=== PATIENT | female | born 1940 | race African-American/Black ===

== ENCOUNTER 2018-06-06 13:47 | Inpatient (IN) | payer MEDICARE, MEDICAID ==
[~2018-06-06] VITALS: Ht 157.5 cm; Wt 54.4 kg
[~2018-06-06 13:47] MED LIST: BENA40TA9 PO; HYDR12.529 PO; LOVA10TA PO; OMEP20TA2 PO
[2018-06-06] MEDS ORDERED: SODIUM CHLORIDE 0.9% 500 ML IV ONE (15:18)
[2018-06-06 16:12] LABS: BASOPHILS % 0.5 % (0.0-2.0); EOSINOPHILS % 0.1 % (0.0-5.0); HEMATOCRIT. 42.9 % (36.0-48.0); HEMOGLOBIN. 14.4 g/dL (12.0-16.0); LYMPHOCYTES % 11.8 % (20.0-50.0); MEAN CORPUSCULAR VOLUME 89.3 fL (81.0-99.0); MEAN PLATELET VOLUME 8.2 fl (7.4-10.4); NEUTROPHILS % 83.6 % (40.0-76.0); PLATELET 350 x1000/uL (130-400); RED BLOOD CELL COUNT 4.81 mill/uL (4.2-5.4)
[2018-06-06 16:15] LABS: CHLORIDE 105 mEq/L (98-107)
[2018-06-06 16:17] LABS: PARTIAL THROMBOPLASTIN TIME 24.8 sec (23.4-31.0); PROTHROMBIN TIME 10.1 sec (9.6-11.0)
[2018-06-06] MEDS ORDERED: MAGNESIUM 1 G PREMIX 100 ML IV ONE (18:00)
[2018-06-06 19:44] LABS: CLARITY URINE CLEAR (CLEAR); COLOR URINE YELLOW (YELLOW); KETONES URINE 1+ (NEGATIVE); LEUKOCYTE ESTERASE URINE 2+ (NEGATIVE); NITRITE URINE NEGATIVE (NEGATIVE); OCCULT BLOOD URINE NEGATIVE (NEGATIVE); PROTEIN URINE NEGATIVE (NEGATIVE); SPECIFIC GRAVITY URINE 1.013 (1.005-1.030)
[2018-06-06] MEDS ORDERED: ONDANSETRON HCL 4MG/2ML INJ IV PRN (20:00)
[2018-06-06] MEDS ORDERED: ACETAMINOPHEN 325MG TABLET PO PRN (20:00)
[2018-06-06] MEDS ORDERED: CEFTRIAXONE 1 G PREMIX 50 ML IV NR (20:30)
[2018-06-06] MEDS ORDERED: LOSARTAN POTASSIUM 50 MG TABLET PO NR (20:30)
[2018-06-06] MEDS: AMLODIPINE 5MG TABLET PO SCH (22:01)
[2018-06-06 23:10] VITALS: BP 172/69
[2018-06-07] VITALS (9 sets, daily range): BP systolic 115–174; BP diastolic 47–86
[2018-06-07] MEDS ORDERED: BENA20TA10 MT (00:47)
[2018-06-07 03:47] LABS: *AMPHETAMINES SCREEN URINE NEGATIVE (NEGATIVE); *BARBITURATES SCREEN URINE NEGATIVE (NEGATIVE); *BENZODIAZEPINES SCREEN URINE NEGATIVE (NEGATIVE); *COCAINE SCREEN URINE NEGATIVE (NEGATIVE); METHADONE URINE SCREEN NEGATIVE (NEGATIVE)
[2018-06-07 03:49] LABS: CANNABINOID URINE SCREEN NEGATIVE (NEGATIVE); OPIATES URINE SCREEN NEGATIVE (NEGATIVE); PHENCYCLIDINE URINE SCREEN NEGATIVE (NEGATIVE)
[2018-06-07 05:56] LABS: EOSINOPHILS % 0.8 % (0.0-5.0); HEMATOCRIT. 34.3 % (36.0-48.0); HEMOGLOBIN. 11.5 g/dL (12.0-16.0); LYMPHOCYTES % 26.8 % (20.0-50.0); MEAN CORPUSCULAR VOLUME 89.4 fL (81.0-99.0); MEAN PLATELET VOLUME 8.4 fl (7.4-10.4); MONOCYTES % 11.9 % (2.0-8.0); NEUTROPHILS % 59.5 % (40.0-76.0); PLATELET 306 x1000/uL (130-400); RED BLOOD CELL COUNT 3.83 mill/uL (4.2-5.4); RED CELL DISTRIBUTION WIDTH 15.7 % (11.6-14.6)
[2018-06-07] MEDS ORDERED: LOSARTAN POTASSIUM 50 MG TABLET PO SCH ×2 (09:00)
[2018-06-07] MEDS: AMLODIPINE 5MG TABLET PO SCH ×2 (09:58→20:44)
[2018-06-07] MEDS: LOSARTAN POTASSIUM 50 MG TABLET PO SCH (20:44)
[2018-06-07] MEDS ORDERED: CEFTRIAXONE 1 G PREMIX 50 ML IV SCH ×2 (21:00)
[2018-06-07] MEDS ORDERED: ATORVASTATIN CALCIUM 20MG TABLET PO SCH (21:00)
[2018-06-08] VITALS: BP 148/64
[2018-06-08 04:00] VITALS: BP 149/77
[2018-06-08 06:31] LABS: BASOPHILS % 0.6 % (0.0-2.0); EOSINOPHILS % 0.9 % (0.0-5.0); HEMATOCRIT. 39.4 % (36.0-48.0); HEMOGLOBIN. 13.2 g/dL (12.0-16.0); LYMPHOCYTES % 40.8 % (20.0-50.0); MEAN CORPUSCULAR HEMOGLOBIN 29.8 pg (28.0-32.0); MEAN CORPUSCULAR VOLUME 89.3 fL (81.0-99.0); MEAN PLATELET VOLUME 8.5 fl (7.4-10.4); NEUTROPHILS % 46.7 % (40.0-76.0); PLATELET 355 x1000/uL (130-400); RED BLOOD CELL COUNT 4.42 mill/uL (4.2-5.4); RED CELL DISTRIBUTION WIDTH 15.8 % (11.6-14.6)
[2018-06-08 08:00] VITALS: BP 112/53
[2018-06-08] MEDS: LOSARTAN POTASSIUM 50 MG TABLET PO SCH (08:49)
[2018-06-08] MEDS: AMLODIPINE 5MG TABLET PO SCH (08:49)
[2018-06-08 12:00] VITALS: BP_SYST 143; BP_SYST 147; BP_SYST 161; BP_DIAS 64; BP_DIAS 80; BP_DIAS 94
[2018-06-08 15:42] VITALS: BP 137/79
[2018-06-08] MEDS ORDERED: CLONIDINE 0.1MG TABLET PO NR (16:45)
== END 2018-06-08 17:35 | disposition home or self-care (01) | DRG 48 ==
LOC: ER 14:01 → 5WST 17:19 → EDBEDREQ 17:25 → ENRESERV 22:23
PROVIDERS: ADMIT Internal Medicine; ATTEND Internal Medicine
DX: G90.8 Other disorders of autonomic nervous system (principal); E83.42 Hypomagnesemia; N39.0 Urinary tract infection, site not specified; I12.9 Hypertensive chronic kidney disease with stage 1 through stage 4 chronic kidney disease, or unspecified chronic kidney disease; N18.2 Chronic kidney disease, stage 2 (mild); E78.5 Hyperlipidemia, unspecified; Z79.899 Other long term (current) drug therapy
CPT/HCPCS: 36415; 71045; 80048; 80061; 80305; 83735; 83880; 84443; 84484; 93005; 93306; 93880; 93970; 96365; 96367; 99285; J0696; J3475; J7040; J7050

== ENCOUNTER 2019-12-28 14:11 | Inpatient (IN) | payer MEDICARE, MEDICAID ==
[~2019-12-28] VITALS: Ht 152.4 cm; Wt 42.6 kg
[~2019-12-28 14:11] MED LIST changes: +AMLO5TAB88 PO; +ATOR20TA65 PO; -BENA40TA9 PO; -HYDR12.529 PO; +LOSA50TA41 PO; -LOVA10TA PO; -OMEP20TA2 PO; +ONDA4TAB5 MT
[2019-12-28] MEDS ORDERED: SODIUM CHLORIDE 0.9% 1,000 ML IV ONE ×2 (15:15→17:30)
[2019-12-28 16:06] LABS: BASOPHILS % 0.2 % (0.0-2.0); HEMATOCRIT. 47.2 % (36.0-48.0); HEMOGLOBIN. 15.9 g/dL (12.0-16.0); LYMPHOCYTES % 9.3 % (20.0-50.0); MEAN CORPUSCULAR HEMOGLOBIN 31.6 pg (28.0-32.0); MEAN CORPUSCULAR VOLUME 93.9 fL (81.0-99.0); MEAN PLATELET VOLUME 9.5 fl (7.4-10.4); MONOCYTES % 5.4 % (2.0-8.0); NEUTROPHILS % 85.1 % (40.0-76.0); PLATELET 401 x1000/uL (130-400); RED BLOOD CELL COUNT 5.03 mill/uL (4.2-5.4); RED CELL DISTRIBUTION WIDTH 13.9 % (11.6-14.6)
[2019-12-28 16:16] LABS: PROTHROMBIN TIME 10.1 sec (9.6-11.0)
[2019-12-28 16:24] LABS: CHLORIDE 105 mEq/L (98-107)
[2019-12-28 22:06] LABS: CLARITY URINE CLEAR (CLEAR); COLOR URINE YELLOW (YELLOW); KETONES URINE 1+ (NEGATIVE); LEUKOCYTE ESTERASE URINE NEGATIVE (NEGATIVE); NITRITE URINE NEGATIVE (NEGATIVE); OCCULT BLOOD URINE NEGATIVE (NEGATIVE); PROTEIN URINE NEGATIVE (NEGATIVE); SPECIFIC GRAVITY URINE 1.017 (1.005-1.030); UROBILINOGEN URINE 0.2 E.U./dL (0.2-1.0)
[2019-12-28 22:35] VITALS: BP 106/80
[2019-12-28 23:13] VITALS: BP 106/60
[2019-12-29] VITALS: BP 122/78
[2019-12-29 04:00] VITALS: BP 136/77
[2019-12-29 06:59] LABS: BASOPHILS % 0.5 % (0.0-2.0); HEMATOCRIT. 40.9 % (36.0-48.0); HEMOGLOBIN. 14.1 g/dL (12.0-16.0); LYMPHOCYTES % 11.7 % (20.0-50.0); MEAN CORPUSCULAR HEMOGLOBIN 31.6 pg (28.0-32.0); MEAN CORPUSCULAR VOLUME 91.7 fL (81.0-99.0); MEAN PLATELET VOLUME 8.5 fl (7.4-10.4); MONOCYTES % 5.7 % (2.0-8.0); NEUTROPHILS % 82.1 % (40.0-76.0); PLATELET 296 x1000/uL (130-400); RED BLOOD CELL COUNT 4.46 mill/uL (4.2-5.4); RED CELL DISTRIBUTION WIDTH 13.2 % (11.6-14.6)
[2019-12-29 07:23] LABS: CHLORIDE 115 mEq/L (98-107)
[2019-12-29 07:37] LABS: LDL CHOLESTEROL 58 mg/dL (5-100)
[2019-12-29 07:39] LABS: CREATINE KINASE 736 IU/L (26-192); HDL CHOLESTEROL 59 mg/dL (40-59)
[2019-12-29 07:42] LABS: CREATINE KINASE MB FRACTION 27.3 ng/mL (0.5-3.6)
[2019-12-29 08:00] VITALS: BP 108/46
[2019-12-29] MEDS: AMLODIPINE 5MG TABLET PO SCH ×2 (08:54→20:44)
[2019-12-29] MEDS: SODIUM CHLORIDE 0.9% 1,000 ML IV SCH ×2 (08:59→17:33)
[2019-12-29 12:00] VITALS: BP 128/65
[2019-12-29 16:00] VITALS: BP 125/88
[2019-12-29 16:18] LABS: CREATINE KINASE MB FRACTION 19.7 ng/mL (0.5-3.6)
[2019-12-29 16:20] LABS: CREATINE KINASE 591 IU/L (26-192)
[2019-12-29 20:00] VITALS: BP 121/76
[2019-12-29] MEDS: ATORVASTATIN CALCIUM 20MG TABLET PO SCH (20:44)
[2019-12-30] VITALS: BP 113/65
[2019-12-30 04:00] VITALS: BP 126/44
[2019-12-30] MEDS: AMLODIPINE 5MG TABLET PO SCH ×2 (09:00→21:13)
[2019-12-30] MEDS: SODIUM CHLORIDE 0.9% 1,000 ML IV SCH ×2 (09:31→21:13)
[2019-12-30 10:48] LABS: BASOPHILS % 0.2 % (0.0-2.0); EOSINOPHILS % 0.1 % (0.0-5.0); HEMATOCRIT. 39.3 % (36.0-48.0); HEMOGLOBIN. 13.3 g/dL (12.0-16.0); LYMPHOCYTES % 13.6 % (20.0-50.0); MEAN CORPUSCULAR HEMOGLOBIN 31.8 pg (28.0-32.0); MEAN CORPUSCULAR VOLUME 94.3 fL (81.0-99.0); MEAN PLATELET VOLUME 8.4 fl (7.4-10.4); MONOCYTES % 6.9 % (2.0-8.0); NEUTROPHILS % 79.2 % (40.0-76.0); PLATELET 250 x1000/uL (130-400); RED BLOOD CELL COUNT 4.17 mill/uL (4.2-5.4); RED CELL DISTRIBUTION WIDTH 13.8 % (11.6-14.6)
[2019-12-30 10:59] LABS: CHLORIDE 116 mEq/L (98-107)
[2019-12-30 12:00] VITALS: BP 133/78
[2019-12-30 14:34] LABS: CREATINE KINASE 494 IU/L (26-192)
[2019-12-30 16:01] VITALS: BP 143/85
[2019-12-30 20:00] VITALS: BP 138/82
[2019-12-30] MEDS: ATORVASTATIN CALCIUM 20MG TABLET PO SCH (21:13)
[2019-12-31] VITALS: BP 125/71
[2019-12-31 04:00] VITALS: BP 136/74
[2019-12-31 08:00] VITALS: BP 137/78
[2019-12-31] MEDS: SODIUM CHLORIDE 0.9% 1,000 ML IV SCH ×2 (08:05→22:25)
[2019-12-31] MEDS: AMLODIPINE 5MG TABLET PO SCH ×2 (09:38→22:23)
[2019-12-31 09:43] LABS: BASOPHILS % 0.1 % (0.0-2.0); EOSINOPHILS % 0.3 % (0.0-5.0); HEMATOCRIT. 38.4 % (36.0-48.0); HEMOGLOBIN. 13.4 g/dL (12.0-16.0); LYMPHOCYTES % 23.7 % (20.0-50.0); MEAN CORPUSCULAR HEMOGLOBIN 31.8 pg (28.0-32.0); MEAN PLATELET VOLUME 8.5 fl (7.4-10.4); MONOCYTES % 7.6 % (2.0-8.0); NEUTROPHILS % 68.3 % (40.0-76.0); PLATELET 257 x1000/uL (130-400); RED BLOOD CELL COUNT 4.22 mill/uL (4.2-5.4); RED CELL DISTRIBUTION WIDTH 13.5 % (11.6-14.6)
[2019-12-31 10:05] LABS: CHLORIDE 109 mEq/L (98-107)
[2019-12-31 12:00] VITALS: BP 132/74
[2019-12-31] MEDS ORDERED: POTASSIUM CHLORIDE 20MEQ TABLET SR PO NR ×2 (12:45→16:01)
[2019-12-31 14:54] LABS: PHOSPHORUS 1.3 mg/dL (2.5-4.9)
[2019-12-31 16:01] VITALS: BP 113/67
[2019-12-31 20:00] VITALS: BP 116/62
[2019-12-31] MEDS: ATORVASTATIN CALCIUM 20MG TABLET PO SCH (22:23)
[2020-01-01] VITALS: BP 121/63
[2020-01-01 04:00] VITALS: BP 114/74
[2020-01-01 06:36] LABS: CHLORIDE 110 mEq/L (98-107)
[2020-01-01 08:00] VITALS: BP 109/67
[2020-01-01] MEDS: AMLODIPINE 5MG TABLET PO SCH ×2 (08:51→21:45)
[2020-01-01] MEDS: SODIUM CHLORIDE 0.9% 1,000 ML IV SCH ×2 (09:04→21:47)
[2020-01-01 12:00] VITALS: BP 130/67
[2020-01-01] MEDS ORDERED: MAGNESIUM 4 G PREMIX 100 ML IV ONE (12:00)
[2020-01-01] MEDS ORDERED: POTASSIUM CHLORIDE 20MEQ TABLET SR PO NR (13:45)
[2020-01-01 16:00] VITALS: BP 131/83
[2020-01-01] MEDS: PANTOPRAZOLE SODIUM 40 MG/VIAL IV SCH (17:13)
[2020-01-01 20:00] VITALS: BP_SYST 128; BP_SYST 144; BP_DIAS 47; BP_DIAS 78
[2020-01-01] MEDS: ATORVASTATIN CALCIUM 20MG TABLET PO SCH (21:45)
[2020-01-02] VITALS: BP 128/80
[2020-01-02 04:00] VITALS: BP 135/79
[2020-01-02 08:00] VITALS: BP 118/68
[2020-01-02] MEDS: AMLODIPINE 5MG TABLET PO SCH ×2 (09:00→21:54)
[2020-01-02] MEDS: PANTOPRAZOLE SODIUM 40 MG/VIAL IV SCH (09:07)
[2020-01-02] MEDS: SODIUM CHLORIDE 0.9% 1,000 ML IV SCH (10:19)
[2020-01-02 10:43] LABS: BASOPHILS % 0.5 % (0.0-2.0); EOSINOPHILS % 0.8 % (0.0-5.0); HEMATOCRIT. 40.9 % (36.0-48.0); HEMOGLOBIN. 14.2 g/dL (12.0-16.0); LYMPHOCYTES % 36.6 % (20.0-50.0); MEAN CORPUSCULAR HEMOGLOBIN 31.9 pg (28.0-32.0); MEAN CORPUSCULAR VOLUME 91.7 fL (81.0-99.0); MEAN PLATELET VOLUME 9.9 fl (7.4-10.4); MONOCYTES % 6.4 % (2.0-8.0); NEUTROPHILS % 55.7 % (40.0-76.0); PLATELET 180 x1000/uL (130-400); RED BLOOD CELL COUNT 4.46 mill/uL (4.2-5.4); RED CELL DISTRIBUTION WIDTH 13.4 % (11.6-14.6)
[2020-01-02 10:59] LABS: PROTHROMBIN TIME 10.2 sec (9.6-11.0)
[2020-01-02] MEDS ORDERED: CEFAZOLIN 1000MG PREMIX 50 ML IV SCH (11:00)
[2020-01-02 11:08] LABS: CHLORIDE 109 mEq/L (98-107)
[2020-01-02 12:00] VITALS: BP 129/74
[2020-01-02] MEDS ORDERED: FENTANYL CITRATE/PF 50MCG/ML 2ML VIAL ONE (13:50)
[2020-01-02] MEDS ORDERED: MIDAZOLAM HCL 5 MG/5 ML VIAL ONE (13:50)
[2020-01-02] MEDS ORDERED: MIDAZOLAM HCL 5 MG/5 ML VIAL IV PRN (13:50)
[2020-01-02 16:00] VITALS: BP_SYST 109; BP_SYST 127; BP_DIAS 60; BP_DIAS 70
[2020-01-02] MEDS: SUCRALFATE 1 G/10 ML UDC GT SCH (17:36)
[2020-01-02] MEDS: METOCLOPRAMIDE HCL 10MG/2ML VIAL IV SCH (17:37)
[2020-01-02 20:00] VITALS: BP 115/62
[2020-01-02] MEDS: ATORVASTATIN CALCIUM 20MG TABLET PO SCH (21:54)
[2020-01-03] VITALS: BP 144/74
[2020-01-03] MEDS: METOCLOPRAMIDE HCL 10MG/2ML VIAL IV SCH ×4 (00:42→18:15)
[2020-01-03] MEDS: SUCRALFATE 1 G/10 ML UDC GT SCH ×4 (00:42→18:15)
[2020-01-03] MEDS: SODIUM CHLORIDE 0.9% 1,000 ML IV SCH ×2 (00:45→11:44)
[2020-01-03 04:00] VITALS: BP 152/67
[2020-01-03 07:42] LABS: BASOPHILS % 0.2 % (0.0-2.0); EOSINOPHILS % 0.3 % (0.0-5.0); HEMATOCRIT. 39.4 % (36.0-48.0); HEMOGLOBIN. 13.5 g/dL (12.0-16.0); LYMPHOCYTES % 13.9 % (20.0-50.0); MEAN CORPUSCULAR HEMOGLOBIN 31.4 pg (28.0-32.0); MEAN CORPUSCULAR VOLUME 91.6 fL (81.0-99.0); NEUTROPHILS % 79.6 % (40.0-76.0); PLATELET 172 x1000/uL (130-400); RED BLOOD CELL COUNT 4.31 mill/uL (4.2-5.4); RED CELL DISTRIBUTION WIDTH 13.4 % (11.6-14.6)
[2020-01-03 08:00] VITALS: BP 130/95
[2020-01-03 08:02] LABS: CHLORIDE 111 mEq/L (98-107)
[2020-01-03 08:07] LABS: PHOSPHORUS 1.8 mg/dL (2.5-4.9)
[2020-01-03] MEDS: PANTOPRAZOLE SODIUM 40 MG/VIAL IV SCH (08:38)
[2020-01-03] MEDS: AMLODIPINE 5MG TABLET PO SCH ×2 (08:39→21:43)
[2020-01-03] MEDS ORDERED: POLYETHYLENE GLYCOL 3350 (17GM) 1 DOSE PACK PEG PRN (09:45)
[2020-01-03] MEDS ORDERED: POLYETHYLENE GLYCOL 3350 (17GM) 1 DOSE PACK PEG NR (10:00)
[2020-01-03] MEDS ORDERED: SUCR1TAB30 MT (11:17)
[2020-01-03] MEDS ORDERED: PANT40TA4 MT (11:17)
[2020-01-03 12:00] VITALS: BP 143/74
[2020-01-03 16:00] VITALS: BP 123/72
[2020-01-03 20:20] VITALS: BP 126/76
[2020-01-03] MEDS: SENNOSIDES/DOCUSATE SOD 8.6/50MG TABLET PEG SCH (21:42)
[2020-01-03] MEDS: ATORVASTATIN CALCIUM 20MG TABLET PO SCH (21:42)
[2020-01-03] MEDS ORDERED: MAGNESIUM 2 G PREMIX 50 ML IV SCH (23:00)
[2020-01-04 00:25] VITALS: BP 128/82
[2020-01-04] MEDS: SUCRALFATE 1 G/10 ML UDC GT SCH ×5 (00:53→23:54)
[2020-01-04] MEDS: METOCLOPRAMIDE HCL 10MG/2ML VIAL IV SCH ×3 (00:53→12:27)
[2020-01-04] MEDS: SODIUM CHLORIDE 0.9% 1,000 ML IV SCH ×2 (00:57→12:30)
[2020-01-04 04:37] VITALS: BP 126/80
[2020-01-04 08:10] VITALS: BP 131/75
[2020-01-04] MEDS: AMLODIPINE 5MG TABLET PO SCH ×2 (09:26→20:25)
[2020-01-04] MEDS: FAMOTIDINE 20MG/2ML VIAL IV SCH (09:26)
[2020-01-04 12:00] VITALS: BP 122/70
[2020-01-04] MEDS ORDERED: SODIUM PHOS,M-BASIC-D-BASIC 10 MM in DEXT 5% WATER 246.6667 ML IV NR (12:30)
[2020-01-04 16:00] VITALS: BP 147/84
[2020-01-04 20:00] VITALS: BP 157/88
[2020-01-04] MEDS: SENNOSIDES/DOCUSATE SOD 8.6/50MG TABLET PEG SCH (20:25)
[2020-01-04] MEDS: ATORVASTATIN CALCIUM 20MG TABLET PO SCH (20:25)
[2020-01-05] VITALS (7 sets, daily range): BP systolic 118–150; BP diastolic 68–82
[2020-01-05] MEDS: SUCRALFATE 1 G/10 ML UDC GT SCH ×3 (06:14→17:13)
[2020-01-05 06:50] LABS: CHLORIDE 109 mEq/L (98-107)
[2020-01-05 07:06] LABS: PHOSPHORUS 1.6 mg/dL (2.5-4.9)
[2020-01-05] MEDS: AMLODIPINE 5MG TABLET PO SCH ×2 (08:49→20:06)
[2020-01-05] MEDS: FAMOTIDINE 20MG/2ML VIAL IV SCH (08:49)
[2020-01-05] MEDS: SODIUM CHLORIDE 0.9% 1,000 ML IV SCH ×2 (12:13)
[2020-01-05] MEDS: ATORVASTATIN CALCIUM 20MG TABLET PO SCH (20:06)
[2020-01-05] MEDS: SENNOSIDES/DOCUSATE SOD 8.6/50MG TABLET PEG SCH (20:06)
[2020-01-06] VITALS: BP 134/68
[2020-01-06] MEDS: SUCRALFATE 1 G/10 ML UDC GT SCH ×5 (00:36→23:37)
[2020-01-06] MEDS: SODIUM CHLORIDE 0.9% 1,000 ML IV SCH ×2 (00:41→15:24)
[2020-01-06 04:00] VITALS: BP 130/76
[2020-01-06 07:25] LABS: CHLORIDE 108 mEq/L (98-107)
[2020-01-06 07:26] LABS: BASOPHILS % 0.3 % (0.0-2.0); EOSINOPHILS % 0.8 % (0.0-5.0); HEMATOCRIT. 34.8 % (36.0-48.0); HEMOGLOBIN. 11.9 g/dL (12.0-16.0); LYMPHOCYTES % 11.5 % (20.0-50.0); MEAN CORPUSCULAR HEMOGLOBIN 31.3 pg (28.0-32.0); MEAN CORPUSCULAR VOLUME 91.2 fL (81.0-99.0); MEAN PLATELET VOLUME 9.8 fl (7.4-10.4); MONOCYTES % 8.9 % (2.0-8.0); NEUTROPHILS % 78.5 % (40.0-76.0); PLATELET 190 x1000/uL (130-400); RED BLOOD CELL COUNT 3.82 mill/uL (4.2-5.4); RED CELL DISTRIBUTION WIDTH 14.1 % (11.6-14.6)
[2020-01-06 08:00] VITALS: BP 156/75
[2020-01-06] MEDS: FAMOTIDINE 20MG/2ML VIAL IV SCH (09:02)
[2020-01-06] MEDS: AMLODIPINE 5MG TABLET PO SCH ×2 (09:02→21:16)
[2020-01-06 12:00] VITALS: BP 122/69
[2020-01-06 12:14] LABS: PHOSPHORUS 2.3 mg/dL (2.5-4.9)
[2020-01-06] MEDS: METOCLOPRAMIDE HCL 10MG/2ML VIAL IV SCH ×3 (12:51→23:37)
[2020-01-06 16:00] VITALS: BP 130/65
[2020-01-06 20:00] VITALS: BP 149/77
[2020-01-06] MEDS: ATORVASTATIN CALCIUM 20MG TABLET PO SCH (21:16)
[2020-01-06] MEDS: SENNOSIDES/DOCUSATE SOD 8.6/50MG TABLET PEG SCH (21:16)
[2020-01-07] VITALS: BP 156/79
[2020-01-07 04:00] VITALS: BP_SYST 149; BP_SYST 156; BP_DIAS 77; BP_DIAS 85
[2020-01-07] MEDS: METOCLOPRAMIDE HCL 10MG/2ML VIAL IV SCH ×3 (06:13→17:00)
[2020-01-07] MEDS: SUCRALFATE 1 G/10 ML UDC GT SCH ×3 (06:13→17:00)
[2020-01-07] MEDS: SODIUM CHLORIDE 0.9% 1,000 ML IV SCH ×2 (06:15→16:56)
[2020-01-07 08:00] VITALS: BP 158/80
[2020-01-07] MEDS: FAMOTIDINE 20MG/2ML VIAL IV SCH (09:03)
[2020-01-07] MEDS: AMLODIPINE 5MG TABLET PO SCH ×2 (09:03→21:09)
[2020-01-07 12:00] VITALS: BP 90/55
[2020-01-07 16:00] VITALS: BP 118/65
[2020-01-07 20:00] VITALS: BP 127/70
[2020-01-07] MEDS: METOPROLOL TARTRATE 25MG TABLET PO SCH (21:09)
[2020-01-07] MEDS: ATORVASTATIN CALCIUM 20MG TABLET PO SCH (21:09)
[2020-01-07] MEDS: SENNOSIDES/DOCUSATE SOD 8.6/50MG TABLET PEG SCH (21:09)
[2020-01-08] VITALS: BP 137/69
[2020-01-08] MEDS: SUCRALFATE 1 G/10 ML UDC GT SCH ×4 (00:46→17:04)
[2020-01-08] MEDS: METOCLOPRAMIDE HCL 10MG/2ML VIAL IV SCH ×4 (00:46→17:04)
[2020-01-08 04:00] VITALS: BP 129/71
[2020-01-08] MEDS: SODIUM CHLORIDE 0.9% 1,000 ML IV SCH (06:28)
[2020-01-08 08:18] VITALS: BP 165/66
[2020-01-08] MEDS: FAMOTIDINE 20MG/2ML VIAL IV SCH (08:27)
[2020-01-08] MEDS: AMLODIPINE 5MG TABLET PO SCH ×2 (08:27→22:35)
[2020-01-08] MEDS: METOPROLOL TARTRATE 25MG TABLET PO SCH ×2 (08:27→22:34)
[2020-01-08 12:00] VITALS: BP 109/51
[2020-01-08 16:00] VITALS: BP 116/59
[2020-01-08 20:00] VITALS: BP 134/66
[2020-01-08] MEDS: ATORVASTATIN CALCIUM 20MG TABLET PO SCH (22:35)
[2020-01-08] MEDS: SENNOSIDES/DOCUSATE SOD 8.6/50MG TABLET PEG SCH (22:35)
[2020-01-09] MEDS: METOCLOPRAMIDE HCL 10MG/2ML VIAL IV SCH ×5 (00:19→23:55)
[2020-01-09] MEDS: SUCRALFATE 1 G/10 ML UDC GT SCH ×5 (00:20→23:55)
[2020-01-09] MEDS: SODIUM CHLORIDE 0.9% 1,000 ML IV SCH ×2 (00:23→16:41)
[2020-01-09 01:06] VITALS: BP 136/69
[2020-01-09 04:00] VITALS: BP 142/66
[2020-01-09 08:31] VITALS: BP 135/70
[2020-01-09] MEDS: METOPROLOL TARTRATE 25MG TABLET PO SCH ×2 (08:36→22:05)
[2020-01-09] MEDS: FAMOTIDINE 20MG/2ML VIAL IV SCH (08:37)
[2020-01-09] MEDS: AMLODIPINE 5MG TABLET PO SCH ×2 (08:37→22:05)
[2020-01-09 09:00] LABS: BASOPHILS % 0.9 % (0.0-2.0); EOSINOPHILS % 0.6 % (0.0-5.0); HEMATOCRIT. 33.8 % (36.0-48.0); HEMOGLOBIN. 11.5 g/dL (12.0-16.0); LYMPHOCYTES % 16.3 % (20.0-50.0); MEAN CORPUSCULAR HEMOGLOBIN 31.3 pg (28.0-32.0); MEAN CORPUSCULAR VOLUME 92.2 fL (81.0-99.0); MEAN PLATELET VOLUME 8.6 fl (7.4-10.4); NEUTROPHILS % 73.2 % (40.0-76.0); PLATELET 376 x1000/uL (130-400); RED BLOOD CELL COUNT 3.66 mill/uL (4.2-5.4); RED CELL DISTRIBUTION WIDTH 14.5 % (11.6-14.6)
[2020-01-09 09:30] LABS: CHLORIDE 106 mEq/L (98-107)
[2020-01-09 12:26] VITALS: BP 128/71
[2020-01-09 15:55] VITALS: BP 114/60
[2020-01-09 20:00] VITALS: BP 134/71
[2020-01-09] MEDS: ATORVASTATIN CALCIUM 20MG TABLET PO SCH (22:05)
[2020-01-09] MEDS: SENNOSIDES/DOCUSATE SOD 8.6/50MG TABLET PEG SCH (22:05)
[2020-01-10] VITALS: BP 129/64
[2020-01-10 04:00] VITALS: BP 120/80
[2020-01-10] MEDS: SODIUM CHLORIDE 0.9% 1,000 ML IV SCH ×2 (04:57→18:28)
[2020-01-10] MEDS: METOCLOPRAMIDE HCL 10MG/2ML VIAL IV SCH ×3 (05:24→18:22)
[2020-01-10] MEDS: SUCRALFATE 1 G/10 ML UDC GT SCH ×3 (05:24→18:22)
[2020-01-10 06:40] LABS: BASOPHILS % 0.4 % (0.0-2.0); EOSINOPHILS % 0.5 % (0.0-5.0); HEMATOCRIT. 32.3 % (36.0-48.0); HEMOGLOBIN. 11.1 g/dL (12.0-16.0); LYMPHOCYTES % 13.7 % (20.0-50.0); MEAN CORPUSCULAR HEMOGLOBIN 31.7 pg (28.0-32.0); MEAN CORPUSCULAR VOLUME 92.2 fL (81.0-99.0); MEAN PLATELET VOLUME 8.6 fl (7.4-10.4); MONOCYTES % 9.9 % (2.0-8.0); NEUTROPHILS % 75.5 % (40.0-76.0); PLATELET 389 x1000/uL (130-400); RED CELL DISTRIBUTION WIDTH 14.7 % (11.6-14.6)
[2020-01-10 06:58] LABS: CHLORIDE 105 mEq/L (98-107)
[2020-01-10 08:00] VITALS: BP 152/83
[2020-01-10] MEDS: METOPROLOL TARTRATE 25MG TABLET PO SCH ×2 (09:17→21:25)
[2020-01-10] MEDS: AMLODIPINE 5MG TABLET PO SCH ×2 (09:17→21:25)
[2020-01-10] MEDS: FAMOTIDINE 20MG/2ML VIAL IV SCH (09:17)
[2020-01-10 12:00] VITALS: BP 138/74
[2020-01-10 16:00] VITALS: BP 123/75
[2020-01-10 20:00] VITALS: BP 134/68
[2020-01-10] MEDS: ATORVASTATIN CALCIUM 20MG TABLET PO SCH (21:25)
[2020-01-10] MEDS: SENNOSIDES/DOCUSATE SOD 8.6/50MG TABLET PEG SCH (21:25)
[2020-01-11] VITALS: BP 122/63
[2020-01-11] MEDS: SUCRALFATE 1 G/10 ML UDC GT SCH ×4 (00:20→18:43)
[2020-01-11] MEDS: METOCLOPRAMIDE HCL 10MG/2ML VIAL IV SCH ×4 (00:20→18:43)
[2020-01-11 04:00] VITALS: BP 142/77
[2020-01-11] MEDS: SODIUM CHLORIDE 0.9% 1,000 ML IV SCH ×2 (05:51→18:43)
[2020-01-11 06:24] LABS: BASOPHILS % 1.1 % (0.0-2.0); EOSINOPHILS % 0.9 % (0.0-5.0); HEMOGLOBIN. 10.3 g/dL (12.0-16.0); MEAN CORPUSCULAR HEMOGLOBIN 31.9 pg (28.0-32.0); MEAN CORPUSCULAR VOLUME 93.1 fL (81.0-99.0); MEAN PLATELET VOLUME 8.5 fl (7.4-10.4); MONOCYTES % 10.9 % (2.0-8.0); NEUTROPHILS % 66.1 % (40.0-76.0); PLATELET 392 x1000/uL (130-400); RED BLOOD CELL COUNT 3.23 mill/uL (4.2-5.4); RED CELL DISTRIBUTION WIDTH 14.9 % (11.6-14.6)
[2020-01-11 06:59] LABS: CHLORIDE 108 mEq/L (98-107)
[2020-01-11 08:00] VITALS: BP 138/61
[2020-01-11] MEDS: AMLODIPINE 5MG TABLET PO SCH ×2 (09:00→20:28)
[2020-01-11] MEDS: FAMOTIDINE 20MG/2ML VIAL IV SCH (09:00)
[2020-01-11] MEDS: METOPROLOL TARTRATE 25MG TABLET PO SCH ×2 (09:00→20:28)
[2020-01-11 13:00] VITALS: BP 117/56
[2020-01-11 16:00] VITALS: BP 116/57
[2020-01-11 20:00] VITALS: BP 112/53
[2020-01-11] MEDS: ATORVASTATIN CALCIUM 20MG TABLET PO SCH (20:28)
[2020-01-11] MEDS: SENNOSIDES/DOCUSATE SOD 8.6/50MG TABLET PEG SCH (20:28)
[2020-01-12] VITALS: BP 119/51
[2020-01-12] MEDS: METOCLOPRAMIDE HCL 10MG/2ML VIAL IV SCH ×4 (00:32→18:06)
[2020-01-12] MEDS: SUCRALFATE 1 G/10 ML UDC GT SCH ×4 (00:36→18:06)
[2020-01-12 04:00] VITALS: BP 147/65
[2020-01-12] MEDS: SODIUM CHLORIDE 0.9% 1,000 ML IV SCH ×2 (06:42→18:07)
[2020-01-12 06:51] LABS: BASOPHILS % 0.6 % (0.0-2.0); EOSINOPHILS % 0.8 % (0.0-5.0); HEMATOCRIT. 27.7 % (36.0-48.0); HEMOGLOBIN. 9.6 g/dL (12.0-16.0); LYMPHOCYTES % 21.7 % (20.0-50.0); MEAN CORPUSCULAR HEMOGLOBIN 32.4 pg (28.0-32.0); MEAN CORPUSCULAR VOLUME 93.9 fL (81.0-99.0); MONOCYTES % 11.5 % (2.0-8.0); NEUTROPHILS % 65.4 % (40.0-76.0); PLATELET 400 x1000/uL (130-400); RED BLOOD CELL COUNT 2.95 mill/uL (4.2-5.4); RED CELL DISTRIBUTION WIDTH 15.2 % (11.6-14.6)
[2020-01-12 07:10] LABS: CHLORIDE 111 mEq/L (98-107)
[2020-01-12 08:00] VITALS: BP 130/63
[2020-01-12] MEDS: FAMOTIDINE 20MG/2ML VIAL IV SCH (09:24)
[2020-01-12] MEDS: AMLODIPINE 5MG TABLET PO SCH ×2 (09:24→21:33)
[2020-01-12] MEDS: METOPROLOL TARTRATE 25MG TABLET PO SCH ×2 (09:24→21:33)
[2020-01-12 12:00] VITALS: BP 106/59
[2020-01-12 16:00] VITALS: BP 112/51
[2020-01-12 20:00] VITALS: BP 126/56
[2020-01-12] MEDS: ATORVASTATIN CALCIUM 20MG TABLET PO SCH (21:32)
[2020-01-12] MEDS: SENNOSIDES/DOCUSATE SOD 8.6/50MG TABLET PEG SCH (21:32)
[2020-01-13] VITALS: BP 146/77
[2020-01-13] MEDS: METOCLOPRAMIDE HCL 10MG/2ML VIAL IV SCH ×4 (00:28→17:05)
[2020-01-13] MEDS: SUCRALFATE 1 G/10 ML UDC GT SCH ×4 (00:28→17:05)
[2020-01-13 04:00] VITALS: BP 136/63
[2020-01-13 08:00] VITALS: BP 140/64
[2020-01-13] MEDS: METOPROLOL TARTRATE 25MG TABLET PO SCH ×2 (09:26→22:04)
[2020-01-13] MEDS: FAMOTIDINE 20MG/2ML VIAL IV SCH (09:26)
[2020-01-13] MEDS: AMLODIPINE 5MG TABLET PO SCH ×2 (09:26→22:04)
[2020-01-13] MEDS: SODIUM CHLORIDE 0.9% 1,000 ML IV SCH ×2 (09:26→23:52)
[2020-01-13 12:00] VITALS: BP 110/56
[2020-01-13 16:00] VITALS: BP 122/54
[2020-01-13 20:00] VITALS: BP 118/52
[2020-01-13] MEDS: SENNOSIDES/DOCUSATE SOD 8.6/50MG TABLET PEG SCH (22:03)
[2020-01-13] MEDS: ATORVASTATIN CALCIUM 20MG TABLET PO SCH (22:05)
[2020-01-14] VITALS: BP 127/53
[2020-01-14] MEDS: METOCLOPRAMIDE HCL 10MG/2ML VIAL IV SCH ×4 (00:51→18:08)
[2020-01-14] MEDS: SUCRALFATE 1 G/10 ML UDC GT SCH ×5 (00:51→23:56)
[2020-01-14 04:00] VITALS: BP 125/60
[2020-01-14 08:00] VITALS: BP 133/86
[2020-01-14] MEDS: AMLODIPINE 5MG TABLET PO SCH ×2 (09:00→21:22)
[2020-01-14] MEDS: METOPROLOL TARTRATE 25MG TABLET PO SCH ×2 (09:00→21:22)
[2020-01-14] MEDS: FAMOTIDINE 20MG/2ML VIAL IV SCH (09:01)
[2020-01-14] MEDS: SODIUM CHLORIDE 0.9% 1,000 ML IV SCH ×2 (09:08→21:19)
[2020-01-14 12:00] VITALS: BP 112/48
[2020-01-14 15:53] VITALS: BP 116/62
[2020-01-14 20:00] VITALS: BP 119/69
[2020-01-14] MEDS: ATORVASTATIN CALCIUM 20MG TABLET PO SCH (21:21)
[2020-01-14] MEDS: SENNOSIDES/DOCUSATE SOD 8.6/50MG TABLET PEG SCH (21:21)
[2020-01-15] VITALS: BP 138/63
[2020-01-15] MEDS: METOCLOPRAMIDE HCL 10MG/2ML VIAL IV SCH ×4 (00:01→23:34)
[2020-01-15 04:00] VITALS: BP 125/47
[2020-01-15] MEDS: SUCRALFATE 1 G/10 ML UDC GT SCH ×3 (06:24→23:34)
[2020-01-15 08:00] VITALS: BP 152/66
[2020-01-15] MEDS: AMLODIPINE 5MG TABLET PO SCH ×2 (08:55→21:01)
[2020-01-15] MEDS: FAMOTIDINE 20MG/2ML VIAL IV SCH (08:55)
[2020-01-15] MEDS: METOPROLOL TARTRATE 25MG TABLET PO SCH ×2 (08:56→21:01)
[2020-01-15] MEDS: SODIUM CHLORIDE 0.9% 1,000 ML IV SCH ×2 (10:30→23:33)
[2020-01-15 11:50] VITALS: BP 106/45
[2020-01-15 16:00] VITALS: BP 105/66
[2020-01-15 20:00] VITALS: BP 134/60
[2020-01-15] MEDS: SENNOSIDES/DOCUSATE SOD 8.6/50MG TABLET PEG SCH (21:00)
[2020-01-15] MEDS: ATORVASTATIN CALCIUM 20MG TABLET PO SCH (21:00)
[2020-01-16] VITALS: BP 143/65
[2020-01-16] MEDS: METOCLOPRAMIDE HCL 10MG/2ML VIAL IV SCH ×3 (05:24→17:47)
[2020-01-16] MEDS: SUCRALFATE 1 G/10 ML UDC GT SCH ×3 (05:24→17:47)
[2020-01-16 08:00] VITALS: BP 97/40
[2020-01-16 08:30] VITALS: BP 166/78
[2020-01-16] MEDS: FAMOTIDINE 20MG/2ML VIAL IV SCH (08:58)
[2020-01-16] MEDS: METOPROLOL TARTRATE 25MG TABLET PO SCH ×2 (08:59→21:13)
[2020-01-16] MEDS: AMLODIPINE 5MG TABLET PO SCH ×2 (08:59→21:13)
[2020-01-16] MEDS: SODIUM CHLORIDE 0.9% 1,000 ML IV SCH (09:11)
[2020-01-16 12:00] VITALS: BP 135/57
[2020-01-16 16:00] VITALS: BP 127/50
[2020-01-16 20:00] VITALS: BP 144/61
[2020-01-16] MEDS: ATORVASTATIN CALCIUM 20MG TABLET PO SCH (21:12)
[2020-01-16] MEDS: SENNOSIDES/DOCUSATE SOD 8.6/50MG TABLET PEG SCH (21:12)
[2020-01-17] VITALS: BP 120/58
[2020-01-17] MEDS: SODIUM CHLORIDE 0.9% 1,000 ML IV SCH ×2 (01:51→12:20)
[2020-01-17] MEDS: SUCRALFATE 1 G/10 ML UDC GT SCH ×5 (01:51→23:33)
[2020-01-17] MEDS: METOCLOPRAMIDE HCL 10MG/2ML VIAL IV SCH ×5 (01:51→23:36)
[2020-01-17 04:00] VITALS: BP 105/57
[2020-01-17 08:00] VITALS: BP 122/58
[2020-01-17] MEDS: AMLODIPINE 5MG TABLET PO SCH ×2 (09:58→22:59)
[2020-01-17] MEDS: FAMOTIDINE 20MG/2ML VIAL IV SCH (09:58)
[2020-01-17] MEDS: METOPROLOL TARTRATE 25MG TABLET PO SCH ×2 (10:01→22:58)
[2020-01-17 12:00] VITALS: BP 118/54
[2020-01-17 16:00] VITALS: BP 110/54
[2020-01-17 20:00] VITALS: BP 134/58
[2020-01-17] MEDS: ATORVASTATIN CALCIUM 20MG TABLET PO SCH (22:58)
[2020-01-17] MEDS: SENNOSIDES/DOCUSATE SOD 8.6/50MG TABLET PEG SCH (23:33)
[2020-01-18] VITALS: BP 162/59
[2020-01-18] MEDS: SUCRALFATE 1 G/10 ML UDC GT SCH ×4 (06:41→23:44)
[2020-01-18] MEDS: METOCLOPRAMIDE HCL 10MG/2ML VIAL IV SCH ×4 (06:42→23:45)
[2020-01-18 08:00] VITALS: BP 160/65
[2020-01-18] MEDS: AMLODIPINE 5MG TABLET PO SCH ×2 (08:21→22:12)
[2020-01-18] MEDS: METOPROLOL TARTRATE 25MG TABLET PO SCH ×2 (08:21→22:11)
[2020-01-18] MEDS: FAMOTIDINE 20MG/2ML VIAL IV SCH (08:51)
[2020-01-18 12:00] VITALS: BP 149/72
[2020-01-18] MEDS: SODIUM CHLORIDE 0.9% 1,000 ML IV SCH (14:37)
[2020-01-18 16:00] VITALS: BP 134/71
[2020-01-18 19:00] VITALS: BP 132/60
[2020-01-18] MEDS: SENNOSIDES/DOCUSATE SOD 8.6/50MG TABLET PEG SCH (22:10)
[2020-01-18] MEDS: ATORVASTATIN CALCIUM 20MG TABLET PO SCH (22:10)
[2020-01-19] MEDS: SODIUM CHLORIDE 0.9% 1,000 ML IV SCH ×2 (02:00→18:50)
[2020-01-19] MEDS: METOCLOPRAMIDE HCL 10MG/2ML VIAL IV SCH ×3 (05:42→18:50)
[2020-01-19] MEDS: SUCRALFATE 1 G/10 ML UDC GT SCH ×3 (05:42→18:50)
[2020-01-19 08:00] VITALS: BP 155/62
[2020-01-19] MEDS: METOPROLOL TARTRATE 25MG TABLET PO SCH ×2 (09:10→23:05)
[2020-01-19] MEDS: AMLODIPINE 5MG TABLET PO SCH ×2 (09:11→23:05)
[2020-01-19] MEDS: FAMOTIDINE 20MG/2ML VIAL IV SCH (09:11)
[2020-01-19 12:00] VITALS: BP 117/69
[2020-01-19 16:00] VITALS: BP 117/56
[2020-01-19 20:00] VITALS: BP 118/55
[2020-01-19] MEDS: SENNOSIDES/DOCUSATE SOD 8.6/50MG TABLET PEG SCH (23:04)
[2020-01-19] MEDS: ATORVASTATIN CALCIUM 20MG TABLET PO SCH (23:04)
[2020-01-20] VITALS: BP 128/54
[2020-01-20] MEDS: METOCLOPRAMIDE HCL 10MG/2ML VIAL IV SCH ×4 (03:49→18:02)
[2020-01-20] MEDS: SUCRALFATE 1 G/10 ML UDC GT SCH ×4 (03:49→18:02)
[2020-01-20 04:00] VITALS: BP 137/61
[2020-01-20 07:17] LABS: HEMATOCRIT. 29.9 % (36.0-48.0); HEMOGLOBIN. 9.9 g/dL (12.0-16.0); MEAN CORPUSCULAR HEMOGLOBIN 32.1 pg (28.0-32.0); MEAN CORPUSCULAR VOLUME 96.6 fL (81.0-99.0); RED BLOOD CELL COUNT 3.09 mill/uL (4.2-5.4); RED CELL DISTRIBUTION WIDTH 16.6 % (11.6-14.6)
[2020-01-20 08:00] VITALS: BP 151/66
[2020-01-20 08:29] LABS: CHLORIDE 113 mEq/L (98-107)
[2020-01-20] MEDS: AMLODIPINE 5MG TABLET PO SCH ×2 (08:46→21:45)
[2020-01-20] MEDS: METOPROLOL TARTRATE 25MG TABLET PO SCH ×2 (08:46→21:45)
[2020-01-20] MEDS: FAMOTIDINE 20MG/2ML VIAL IV SCH (11:04)
[2020-01-20 11:08] LABS: PLATELET ESTIMATE NORMAL
[2020-01-20 11:09] LABS: PLATELET 342 x1000/uL (130-400)
[2020-01-20 12:00] VITALS: BP 119/56
[2020-01-20 16:00] VITALS: BP 133/58
[2020-01-20 20:00] VITALS: BP 134/57
[2020-01-20] MEDS: ATORVASTATIN CALCIUM 20MG TABLET PO SCH (21:44)
[2020-01-20] MEDS: SENNOSIDES/DOCUSATE SOD 8.6/50MG TABLET PEG SCH (21:44)
[2020-01-21] VITALS: BP 136/61
[2020-01-21] MEDS: METOCLOPRAMIDE HCL 10MG/2ML VIAL IV SCH ×4 (00:56→17:38)
[2020-01-21] MEDS: SUCRALFATE 1 G/10 ML UDC GT SCH ×4 (00:58→17:38)
[2020-01-21] MEDS: SODIUM CHLORIDE 0.9% 1,000 ML IV SCH (03:09)
[2020-01-21 04:00] VITALS: BP 137/83
[2020-01-21 08:00] VITALS: BP 136/58
[2020-01-21] MEDS: FAMOTIDINE 20MG/2ML VIAL IV SCH (08:37)
[2020-01-21] MEDS: METOPROLOL TARTRATE 25MG TABLET PO SCH ×2 (08:39→21:24)
[2020-01-21] MEDS: AMLODIPINE 5MG TABLET PO SCH ×2 (08:39→21:23)
[2020-01-21 20:00] VITALS: BP 145/61
[2020-01-21] MEDS: SENNOSIDES/DOCUSATE SOD 8.6/50MG TABLET PEG SCH (21:24)
[2020-01-21] MEDS: ATORVASTATIN CALCIUM 20MG TABLET PO SCH (21:24)
[2020-01-22] VITALS: BP 152/70
[2020-01-22 04:00] VITALS: BP 122/61
[2020-01-22] MEDS: SODIUM CHLORIDE 0.9% 1,000 ML IV SCH ×2 (06:28→21:17)
[2020-01-22] MEDS: SUCRALFATE 1 G/10 ML UDC GT SCH ×5 (06:28→23:21)
[2020-01-22] MEDS: METOCLOPRAMIDE HCL 10MG/2ML VIAL IV SCH ×5 (06:29→23:21)
[2020-01-22 08:00] VITALS: BP 134/65
[2020-01-22] MEDS: AMLODIPINE 5MG TABLET PO SCH ×2 (08:41→21:18)
[2020-01-22] MEDS: FAMOTIDINE 20MG/2ML VIAL IV SCH (08:41)
[2020-01-22] MEDS: METOPROLOL TARTRATE 25MG TABLET PO SCH ×2 (08:42→21:19)
[2020-01-22 12:00] VITALS: BP 117/56
[2020-01-22 20:00] VITALS: BP 140/70
[2020-01-22] MEDS: ATORVASTATIN CALCIUM 20MG TABLET PO SCH (21:17)
[2020-01-22] MEDS: SENNOSIDES/DOCUSATE SOD 8.6/50MG TABLET PEG SCH (21:24)
[2020-01-23] VITALS: BP 139/62
[2020-01-23 04:00] VITALS: BP 146/66
[2020-01-23] MEDS: METOCLOPRAMIDE HCL 10MG/2ML VIAL IV SCH ×3 (06:24→18:00)
[2020-01-23] MEDS: SODIUM CHLORIDE 0.9% 1,000 ML IV SCH ×2 (06:24→18:01)
[2020-01-23] MEDS: SUCRALFATE 1 G/10 ML UDC GT SCH ×3 (06:24→18:00)
[2020-01-23 08:00] VITALS: BP 119/45
[2020-01-23] MEDS: FAMOTIDINE 20MG/2ML VIAL IV SCH (10:02)
[2020-01-23] MEDS: AMLODIPINE 5MG TABLET PO SCH ×2 (10:03→21:13)
[2020-01-23] MEDS: METOPROLOL TARTRATE 25MG TABLET PO SCH ×2 (10:03→21:18)
[2020-01-23 12:00] VITALS: BP 127/68
[2020-01-23 16:00] VITALS: BP 118/62
[2020-01-23 20:00] VITALS: BP 124/56
[2020-01-23] MEDS: SENNOSIDES/DOCUSATE SOD 8.6/50MG TABLET PEG SCH (21:13)
[2020-01-23] MEDS: ATORVASTATIN CALCIUM 20MG TABLET PO SCH (21:15)
[2020-01-24] VITALS: BP 114/59
[2020-01-24] MEDS: METOCLOPRAMIDE HCL 10MG/2ML VIAL IV SCH ×4 (01:23→17:37)
[2020-01-24 04:00] VITALS: BP 138/52
[2020-01-24] MEDS: SUCRALFATE 1 G/10 ML UDC GT SCH ×4 (05:58→17:37)
[2020-01-24 08:00] VITALS: BP 158/69
[2020-01-24] MEDS: SODIUM CHLORIDE 0.9% 1,000 ML IV SCH ×2 (09:00→19:30)
[2020-01-24] MEDS: FAMOTIDINE 20MG/2ML VIAL IV SCH (09:00)
[2020-01-24] MEDS: AMLODIPINE 5MG TABLET PO SCH ×2 (09:03→21:16)
[2020-01-24] MEDS: METOPROLOL TARTRATE 25MG TABLET PO SCH ×2 (09:03→21:16)
[2020-01-24 12:00] VITALS: BP 119/57
[2020-01-24 16:00] VITALS: BP 106/47
[2020-01-24 20:00] VITALS: BP 136/61
[2020-01-24] MEDS: SENNOSIDES/DOCUSATE SOD 8.6/50MG TABLET PEG SCH (21:15)
[2020-01-24] MEDS: ATORVASTATIN CALCIUM 20MG TABLET PO SCH (21:16)
[2020-01-25] VITALS: BP 142/65
[2020-01-25] MEDS: METOCLOPRAMIDE HCL 10MG/2ML VIAL IV SCH ×5 (00:57→23:58)
[2020-01-25] MEDS: SUCRALFATE 1 G/10 ML UDC GT SCH ×4 (00:57→17:21)
[2020-01-25 04:00] VITALS: BP 140/61
[2020-01-25 08:00] VITALS: BP 136/68
[2020-01-25] MEDS: SODIUM CHLORIDE 0.9% 1,000 ML IV SCH ×2 (08:00→20:00)
[2020-01-25] MEDS: METOPROLOL TARTRATE 25MG TABLET PO SCH ×2 (09:38→21:59)
[2020-01-25] MEDS: FAMOTIDINE 20MG/2ML VIAL IV SCH (09:38)
[2020-01-25] MEDS: AMLODIPINE 5MG TABLET PO SCH ×2 (09:39→22:00)
[2020-01-25 12:00] VITALS: BP 110/54
[2020-01-25 20:00] VITALS: BP 139/70
[2020-01-25] MEDS: ATORVASTATIN CALCIUM 20MG TABLET PO SCH (21:59)
[2020-01-25] MEDS: SENNOSIDES/DOCUSATE SOD 8.6/50MG TABLET PEG SCH (22:00)
[2020-01-26] VITALS: BP 156/74
[2020-01-26] MEDS: SUCRALFATE 1 G/10 ML UDC GT SCH ×4 (00:09→18:02)
[2020-01-26 04:00] VITALS: BP 135/64
[2020-01-26] MEDS: METOCLOPRAMIDE HCL 10MG/2ML VIAL IV SCH ×3 (05:23→18:02)
[2020-01-26 08:00] VITALS: BP 142/70
[2020-01-26] MEDS: FAMOTIDINE 20MG/2ML VIAL IV SCH (10:09)
[2020-01-26] MEDS: AMLODIPINE 5MG TABLET PO SCH (10:09)
[2020-01-26] MEDS: METOPROLOL TARTRATE 25MG TABLET PO SCH ×2 (10:09→21:52)
[2020-01-26 20:00] VITALS: BP 152/67
[2020-01-26] MEDS: SENNOSIDES/DOCUSATE SOD 8.6/50MG TABLET PEG SCH (21:52)
[2020-01-26] MEDS: ATORVASTATIN CALCIUM 20MG TABLET PO SCH (21:52)
[2020-01-27] VITALS: BP 156/63
[2020-01-27] MEDS: METOCLOPRAMIDE HCL 10MG/2ML VIAL IV SCH ×4 (00:26→17:10)
[2020-01-27] MEDS: SUCRALFATE 1 G/10 ML UDC GT SCH ×4 (00:26→17:10)
[2020-01-27 04:00] VITALS: BP 128/62
[2020-01-27 08:00] VITALS: BP 135/66
[2020-01-27] MEDS: METOPROLOL TARTRATE 25MG TABLET PO SCH ×2 (09:28→21:14)
[2020-01-27] MEDS: FAMOTIDINE 20MG/2ML VIAL IV SCH (09:29)
[2020-01-27 11:55] VITALS: BP 127/55
[2020-01-27 16:00] VITALS: BP 118/48
[2020-01-27 20:00] VITALS: BP 141/65
[2020-01-27] MEDS: SENNOSIDES/DOCUSATE SOD 8.6/50MG TABLET PEG SCH (21:13)
[2020-01-28] VITALS: BP 135/59
[2020-01-28] MEDS: METOCLOPRAMIDE HCL 10MG/2ML VIAL IV SCH ×5 (01:11→23:58)
[2020-01-28 04:00] VITALS: BP 114/78
[2020-01-28] MEDS: SUCRALFATE 1 G/10 ML UDC GT SCH ×6 (06:06→23:50)
[2020-01-28 08:00] VITALS: BP 141/60
[2020-01-28 09:30] LABS: BASOPHILS % 0.8 % (0.0-2.0); EOSINOPHILS % 0.8 % (0.0-5.0); HEMATOCRIT. 31.3 % (36.0-48.0); HEMOGLOBIN. 10.6 g/dL (12.0-16.0); LYMPHOCYTES % 30.2 % (20.0-50.0); MEAN CORPUSCULAR HEMOGLOBIN 32.4 pg (28.0-32.0); MEAN CORPUSCULAR VOLUME 96.1 fL (81.0-99.0); MEAN PLATELET VOLUME 7.9 fl (7.4-10.4); MONOCYTES % 14.8 % (2.0-8.0); NEUTROPHILS % 53.4 % (40.0-76.0); PLATELET 358 x1000/uL (130-400); RED BLOOD CELL COUNT 3.26 mill/uL (4.2-5.4); RED CELL DISTRIBUTION WIDTH 16.2 % (11.6-14.6)
[2020-01-28 09:38] LABS: CHLORIDE 110 mEq/L (98-107)
[2020-01-28] MEDS: METOPROLOL TARTRATE 25MG TABLET PO SCH ×2 (09:45→21:08)
[2020-01-28] MEDS: FAMOTIDINE 20MG/2ML VIAL IV SCH (10:41)
[2020-01-28 12:00] VITALS: BP 139/60
[2020-01-28 16:00] VITALS: BP 123/56
[2020-01-28 20:00] VITALS: BP 154/61
[2020-01-28] MEDS: SENNOSIDES/DOCUSATE SOD 8.6/50MG TABLET PEG SCH (21:08)
[2020-01-29] VITALS: BP_SYST 142; BP_SYST 147; BP_DIAS 65; BP_DIAS 82
[2020-01-29 04:00] VITALS: BP 139/59
[2020-01-29] MEDS: METOCLOPRAMIDE HCL 10MG/2ML VIAL IV SCH ×3 (05:28→18:10)
[2020-01-29] MEDS: SUCRALFATE 1 G/10 ML UDC GT SCH ×3 (05:28→18:10)
[2020-01-29 08:00] VITALS: BP 129/61
[2020-01-29] MEDS: METOPROLOL TARTRATE 25MG TABLET PO SCH ×2 (08:41→20:45)
[2020-01-29] MEDS: FAMOTIDINE 20MG/2ML VIAL IV SCH (08:42)
[2020-01-29 12:00] VITALS: BP 112/51
[2020-01-29 16:00] VITALS: BP 115/55
[2020-01-29 20:00] VITALS: BP 130/53
[2020-01-29] MEDS: SENNOSIDES/DOCUSATE SOD 8.6/50MG TABLET PEG SCH (20:44)
[2020-01-30] VITALS: BP 142/82
[2020-01-30] MEDS: SUCRALFATE 1 G/10 ML UDC GT SCH ×4 (00:10→17:23)
[2020-01-30] MEDS: METOCLOPRAMIDE HCL 10MG/2ML VIAL IV SCH ×5 (00:22→23:41)
[2020-01-30 04:00] VITALS: BP 140/65
[2020-01-30 08:00] VITALS: BP 146/70
[2020-01-30] MEDS: FAMOTIDINE 20MG/2ML VIAL IV SCH (09:21)
[2020-01-30] MEDS: METOPROLOL TARTRATE 25MG TABLET PO SCH ×2 (09:21→22:28)
[2020-01-30 12:00] VITALS: BP 120/44
[2020-01-30 16:00] VITALS: BP 110/50
[2020-01-30 20:00] VITALS: BP 139/62
[2020-01-30] MEDS: SENNOSIDES/DOCUSATE SOD 8.6/50MG TABLET PEG SCH (22:27)
[2020-01-31] VITALS: BP 132/55
[2020-01-31 04:00] VITALS: BP 117/58
[2020-01-31] MEDS: METOCLOPRAMIDE HCL 10MG/2ML VIAL IV SCH ×4 (05:17→23:51)
[2020-01-31 08:00] VITALS: BP_SYST 125; BP_SYST 135; BP_DIAS 58; BP_DIAS 67
[2020-01-31] MEDS: FAMOTIDINE 20MG/2ML VIAL IV SCH (08:57)
[2020-01-31] MEDS: METOPROLOL TARTRATE 25MG TABLET PO SCH ×2 (08:58→20:27)
[2020-01-31 12:00] VITALS: BP 110/55
[2020-01-31 16:00] VITALS: BP 117/55
[2020-01-31 20:00] VITALS: BP 129/53
[2020-01-31] MEDS: SENNOSIDES/DOCUSATE SOD 8.6/50MG TABLET PEG SCH (20:27)
[2020-02-01] VITALS: BP 120/66
[2020-02-01 04:00] VITALS: BP 129/63
[2020-02-01] MEDS: METOCLOPRAMIDE HCL 10MG/2ML VIAL IV SCH ×2 (05:00→12:58)
[2020-02-01 08:00] VITALS: BP 104/59
[2020-02-01] MEDS: METOPROLOL TARTRATE 25MG TABLET PO SCH (09:00)
[2020-02-01] MEDS: FAMOTIDINE 20MG/2ML VIAL IV SCH (10:04)
[2020-02-01 12:00] VITALS: BP 113/58
[2020-02-01 16:00] VITALS: BP 121/58
[2020-02-01 18:01] VITALS: BP 121/58
== END 2020-02-01 18:28 | DRG 241 ==
LOC: ER 14:28 → 5WST 18:19 → EDBEDREQSVC 18:41 → EDBEDREQTM 18:41 → EDBEDREQ 18:41 → ENRESERV 20:41 → 6EST 01-08 12:44
PROVIDERS: ADMIT Internal Medicine; ATTEND Internal Medicine
PROC: 0DH63UZ Insertion of Feeding Device into Stomach, Percutaneous Approach (ICD-10-PCS; principal; 2020-01-02)
PROC: 0DB68ZX Excision of Stomach, Via Natural or Artificial Opening Endoscopic, Diagnostic (ICD-10-PCS; 2020-01-02)
DX: K29.70 Gastritis, unspecified, without bleeding (principal); K20.90 Esophagitis, unspecified without bleeding; K57.30 Diverticulosis of large intestine without perforation or abscess without bleeding; K63.9 Disease of intestine, unspecified; N17.0 Acute kidney failure with tubular necrosis; E86.0 Dehydration; M62.82 Rhabdomyolysis; E78.00 Pure hypercholesterolemia, unspecified; I10 Essential (primary) hypertension; E78.5 Hyperlipidemia, unspecified; F03.90 Unspecified dementia, unspecified severity, without behavioral disturbance, psychotic disturbance, mood disturbance, and anxiety; E83.42 Hypomagnesemia; E87.6 Hypokalemia; E43 Unspecified severe protein-calorie malnutrition; I70.0 Atherosclerosis of aorta; F81.9 Developmental disorder of scholastic skills, unspecified; R74.8 Abnormal levels of other serum enzymes; J44.9 Chronic obstructive pulmonary disease, unspecified; G93.41 Metabolic encephalopathy; Z20.828 Contact with and (suspected) exposure to other viral communicable diseases; L89.42 Pressure ulcer of contiguous site of back, buttock and hip, stage 2; E87.2 Acidosis; Z68.1 Body mass index [BMI] 19.9 or less, adult; Z79.899 Other long term (current) drug therapy; R62.7 Adult failure to thrive; R64 Cachexia
CPT/HCPCS: 36415; 70551; 71045; 74176; 80048; 80053; 80061; 81003; 82550; 82553; 83605; 83735; 84100; 84132; 84443; 84484; 85025; 87426; 88305; 88313; 92610; 93005; 93306; 97112; 97162; 97530; 99291; A6261; C1893; C9113; J0690; J2250; J2765; J3010; J3475; J3490; J7030; J7060